=== PATIENT | female | born 1950 | race Caucasian/White ===

== ENCOUNTER 2017-02-02 13:59 | Outpatient (CLI) | payer MEDICARE ==
[2017-02-02 14:14] LABS: #Eosinphils 0.2 thou/uL (0.0-0.7); #Lymphocytes 1.2 thou/uL (1.20-3.40); #Monocytes 0.3 thou/uL (0.11-0.59); #Neutrophils 3.7 thou/uL (1.40-6.50); %Basophils 0.8 % (0.0-1.0); %Eosinophils 3.1 % (0.0-10.0); %Lymphocytes 22.2 % (21.0-51.0); %Monocytes 5.6 % (0.0-10.0); %Neutrophils 68.3 % (42.0-75.0); Hemoglobin 15.3 g/dL (12.0-16.0); Mean Corpuscular HGB CONC 32.2 g/dL (32.0-36.0); Mean Corpuscular Hemoglobin 28.1 pg (27.0-31.0); Mean Corpuscular Volume 87.4 fl (81.0-99.0); Platelet Count 275 thou/uL (130-400); RBC Distribution Width 12.9 % (11.5-14.5); Red Blood Cell (RBC) Count 5.43 mill/uL (4.20-5.40); White Blood Cell (WBC) Count 5.4 thou/uL (4.8-10.8)
[2017-02-02 14:25] LABS: Hemoglobin A1c 5.1 % (4.0-6.0)
[2017-02-02 16:27] LABS: ALT (SGPT) 19 U/L (8-55); AST (SGOT) 18 U/L (5-34); Albumin 3.9 g/dL (3.4-4.8); Alkaline Phosphatase 61 U/L (40-150); Anion Gap 14 mmol/L (10-20); BUN (Urea Nitrogen) 16 mg/dL (9.8-20.1); Bilirubin, Total 0.4 mg/dL (0.2-1.2); Calc. Creatinine Clearance 0 mL/min (70-130); Calcium 9.8 mg/dL (7.8-10.44); Carbon Dioxide 25 mmol/L (23-31); Cardiac Risk 3.4 (Less than 4.5); Chloride 102 mmol/L (98-107); Cholesterol 264 mg/dl (< 200 Desired); Estimated GFR-MDRD 53; Globulin 3.3 g/dL (2.4-3.5); Glucose 75 mg/dL (80-115); HDL Cholesterol 77 mg/dL (>60 Neg Risk); LDL Cholesterol, Calculated 172 mg/dL; Potassium 3.9 mmol/L (3.5-5.1); Protein, Total 7.2 g/dL (6.0-8.3); Sodium 137 mmol/L (136-145); Triglycerides 74 mg/dL (Less than 150)
[2017-02-02 16:48] LABS: Free T4 (Free Thyroxine) 1.4 ng/dL (0.70-1.48); Thyroid Stimulating Hormone 0.2343 uIU/mL (0.35-4.94)
== END 2017-02-02 14:00 | disposition home or self-care (01) ==
LOC: NAV LAB 13:59
PROVIDERS: ATTEND Family Medicine
DX: E78.2 Mixed hyperlipidemia (principal); E06.3 Autoimmune thyroiditis; N95.8 Other specified menopausal and perimenopausal disorders; M81.0 Age-related osteoporosis without current pathological fracture; Z79.899 Other long term (current) drug therapy
CPT/HCPCS: 36415; 80053; 80061; 82306; 82672; 83036; 84439; 84443; 84481; 85025